=== PATIENT | male | born 2000 | race African-American/Black ===

== ENCOUNTER 2019-10-22 08:09 | Emergency (ER) | payer SELFPAY ==
[2019-10-22] MEDS ORDERED: Ketorolac INJ* 30 MG/ML 1 ML VIAL IM ONE (09:08)
[2019-10-22] MEDS ORDERED: Ondansetron INJ* 2 MG/ML VIAL IV ONE (09:08)
[2019-10-22] MEDS ORDERED: NS 0.9% 1000 ML** 1,000 ML IV ONE (09:08)
--- NOTE | 2019-10-22 09:15 | ED ---
Abdominal Pain/Male - HPI Summary HPI Summary: The patient is a 19-year-old male presenting [place] [facility] with a chief complaint of sudden onset right flank pain that radiates into the right side of the back onset early this morning. He reports that he got up to have a bowel movement when the pain suddenly began. He endorses nausea, vomiting, and diarrhea. He describes the pain as sharp rated 8/10 in severity. There are no aggravating or alleviating factors. He has not taken any medications prior to arrival. No PMHx. Nonsmoker, no EtOH, marijuana use. Medications reviewed. Allergies noted. - History of Current Complaint Chief Complaint: EDAbdPain Stated Complaint: FLANK PAIN Time Seen by Provider: 10/22/19 09:00 Hx Obtained From: Patient Onset/Duration: Sudden Onset, Lasting Hours, Still Present Timing: Constant, Lasting Hours Severity Initially: Severe Severity Currently: Severe Pain Intensity: 8 Pain Scale Used: 0-10 Numeric Location: Flank - right Radiates: Yes Radiates to: Back - right Character: Sharp Aggravating Factor(s): Nothing Alleviating Factor(s): Nothing Associated Signs And Symptoms: Positive: Back Pain, Nausea, Vomiting, Diarrhea - Allergies/Home Medications Allergies/Adverse Reactions: Allergies Allergy/AdvReac Type Severity Reaction Status Date / Time No Known Allergies Allergy Verified 10/22/19 08:16 PMH/Surg Hx/FS Hx/Imm Hx Endocrine/Hematology History: Denies: Hx Diabetes Cardiovascular History: Denies: Hx Hypercholesterolemia, Hx Hypertension Respiratory History: Denies: Hx Asthma - Surgical History Surgical History: None Surgery Procedure, Year, and Place: none Infectious Disease History: No Infectious Disease History: Denies: Traveled Outside the [place] in Last 30 Days - Family History Known Family History: Negative: Diabetes - Social History Alcohol Use: None Hx Substance Use: Yes Substance Use Type: Reports: Marijuana Hx Tobacco Use: No Smoking Status (MU): Never Smoked Tobacco Review of Systems Positive: Vomiting, Diarrhea, Nausea Positive: flank pain - right Positive: Other - right back pain radiating from flank All Other Systems Reviewed And Are Negative: Yes Physical Exam - Summary Physical Exam Summary: VITAL SIGNS: Reviewed. GENERAL: Patient is a well-developed and nourished male who is lying comfortable in the stretcher. Patient is not in any acute respiratory distress. HEAD AND FACE: Normocephalic and atraumatic. EYES: PERRLA, EOMI x 2, No injected conjunctiva. EARS: Hearing grossly intact. Ear canals and tympanic membranes are WNL. MOUTH: Oropharynx within normal limits. NECK: Supple, trachea is midline, no adenopathy, no JVD. CHEST: Symmetric, no tenderness at palpation. LUNGS: Clear to auscultation bilaterally. No wheezing or crackles. CVS: RRR, S1 and S2 present, no murmurs or gallops appreciated. ABDOMEN: Soft, right flank tenderness. No signs of distention. Positive bowel sounds. No rebound, no guarding, and no masses palpated. No abdominal bruit or pulsations. EXTREMITIES: FROM in all major joints, no edema, no cyanosis or clubbing. NEURO: Alert and oriented x 3. No acute neurological deficits. Speech is normal. SKIN: Dry and warm. Triage Information Reviewed: Yes Vital Signs On Initial Exam: Initial Vitals Temp Pulse Resp BP Pulse Ox 97.4 F 90 14 152/110 100 10/22/19 08:10 10/22/19 08:10 10/22/19 08:10 10/22/19 08:10 10/22/19 08:10 Vital Signs Reviewed: Yes Procedures - Sedation Patient Received Moderate/Deep Sedation with Procedure: No Diagnostics - Vital Signs Vital Signs Temp Pulse Resp BP Pulse Ox 10/22/19 08:10 97.4 F 90 14 152/110 100 - Laboratory Result Diagrams: 10/22/19 09:25 10/22/19 09:25 Lab Statement: Any lab studies that have been ordered have been reviewed, and results considered in the medical decision making process. - CT Abdomen/Pelvis CT CT Interpretation Completed By: Radiologist Summary of CT Findings: Impression: Right nephrolithiasis including a 0.2 cm calculus of the right UVJ with mild right hydronephrosis. ED physician has reviewed this report. Abdominal Pain Male Course/Dx - Course Assessment/Plan: The patient is a 19-year-old male presenting [place] [facility] with a chief complaint of sudden onset right flank pain that radiates into the right side of the back onset early this morning. He reports that he got up to have a bowel movement when the pain suddenly began. He endorses nausea, vomiting, and diarrhea. He describes the pain as sharp rated 8/ 10 in severity. There are no aggravating or alleviating factors. He has not taken any medications prior to arrival. No PMHx. Nonsmoker, no EtOH, marijuana use. Medications reviewed. Allergies noted. In the ED course the patient was placed in a laboratory monitor, IV access was obtained, IV fluids were started, and he was given Toradol for the pain. Blood work without a significant abnormality except the WBCs of 14.8, hemoglobin of 13.7, hematocrit of 41, and glucose of 165. Abdominal and Pelvis CT Impression: Right nephrolithiasis including a 0.2 cm calculus of the right UVJ with mild right hydronephrosis. UA is negative. After medications, the patient is feeling better. He has no other complaints. I discussed all the findings and test results with the patient. Patient was instructed to return to the emergency room immediately if any of the symptoms return or worsen. Plan of care was discussed with the patient and understands and agrees. All questions were answered at patient satisfaction. There were no further complaints or concerns. Lung exam before discharge: CTA B/ L. Good air exchange. No wheezing or crackles heard. CVS: S1 and S2 present. No murmurs appreciated. Patient is alert and oriented x 3. Patient is hemodynamically stable. Patient will be discharged home with follow up PCP in the next 2-3 days. - Diagnoses Differential Diagnosis/HQI/PQRI: Appendicitis, Bowel Obstruction, Constipation, Renal Colic, Urinary Tract Infection Provider Diagnoses: Renal colic Discharge ED - Sign-Out/Discharge Documenting (check all that apply): Patient Departure - Patient will be discharged home. - Discharge Plan Condition: Stable Disposition: HOME Prescriptions: Hydrocodone/Acetaminophen [Rosalia 5-325 Tablet] 1 each PO Q6H PRN #10 tablet MDD 4 PRN Reason: Pain - Moderate Ibuprofen TAB* [Motrin TAB* 600 MG] 600 mg PO Q8H PRN #30 tab PRN Reason: Pain - Moderate Patient Education Materials: Renal Colic (ED) Referrals: Jones Randall MD [Primary Care Provider] - 3 Days Additional Instructions: Follow up with your primary care provider in 2-3 days. Return to the emergency department for any new or worsening symptoms. - Billing Disposition and Condition Condition: STABLE Disposition: Home - Attestation Statements Document Initiated by Scribe: Yes Documenting Scribe: Anna Armenta Provider For Whom Flavio is Documenting (Include Credential): Dr. Chilo Mills MD Scribe Attestation: I, Anna Armenta, scribed for Dr. Chilo Mills MD on 10/22/19 at 1848. Scribe Documentation Reviewed: Yes Provider Attestation: The documentation as recorded by the scribe, Anna Armenta accurately reflects the service I personally performed and the decisions made by me, Dr. Chilo Mills MD Status of Scribe Document: Viewed
[2019-10-22 09:33] LABS: ABS Eosinophils 0.1 10^3/ul (0-0.6); ABS Lymphocytes 2.6 10^3/ul (1.0-4.8); ABS Monocytes 0.7 10^3/ul (0-0.8); ABS Neutrophils 11.3 10^3/ul (1.5-7.7); Eosinophil % 0.4 %; Hematocrit 41 % (42-52); Hemoglobin 13.7 g/dL (14.0-18.0); Lymphocyte % 17.8 %; Mean Corpuscular HGB Conc 34 g/dL (31-36); Mean Corpuscular Hemoglobin 29 pg (27-31); Mean Corpuscular Volume 86 fL (80-94); Mean Platelet Volume 8.1 fL (7.4-10.4); Nucleated Red Blood Cells % 0.1; Platelet Count 193 10^3/uL (150-450); Red Blood Count 4.75 10^6 /uL (4.18-5.48); Red Cell Distribution Width 12 % (10-15); White Blood Count 14.8 10^3/uL (3.5-10.8)
[2019-10-22 09:53] LABS: ALT 15 U/L (7-52); AST 20 U/L (13-39); Albumin 4.6 g/dL (3.2-5.2); Albumin/Globulin Ratio 1.9 (1-3); Alkaline Phosphatase 62 U/L (34-104); Anion Gap 9 mmol/L (2-11); BUN/Creatinine Ratio 14.3 (8-20); Blood Urea Nitrogen 14 mg/dL (6-24); C Reactive Protein < 1.00 mg/L (<8.01); CO2 Carbon Dioxide 27 mmol/L (22-32); Calcium 9.7 mg/dL (8.6-10.3); Chloride 106 mmol/L (101-111); EGFR African American 116.8 (>60); EGFR Non-African American 96.6 (>60); Globulin 2.4 g/dL (2-4); Glucose 165 mg/dL (70-100); Potassium 4.5 mmol/L (3.5-5.0); Sodium 142 mmol/L (135-145)
[2019-10-22] MEDS ORDERED: Morphine 4 MG/ML VIAL (1 ml) 4 MG/ML VIAL IV ONE (10:16)
[2019-10-22] MEDS ORDERED: Acetaminophen TAB* 325 MG PO ONE (11:18)
[2019-10-22 11:41] VITALS: BP 102/85
[2019-10-22 12:31] LABS: Urine Appearance Clear; Urine Bilirubin Negative (Negative); Urine Blood 3+ (Negative); Urine Color Yellow; Urine Glucose Negative (Negative); Urine Ketones Negative (Negative); Urine Nitrite Negative (Negative); Urine Protein 1+(30 mg/dL) (Negative); Urine Specific Gravity 1.026 (1.010-1.030); Urine Urobilinogen Negative (Negative)
[2019-10-22 12:47] LABS: Urine Bacteria Absent (Absent); Urine Red Blood Cell 3+(>10/hpf) (Absent); Urine White Blood Cell Absent (Absent)
== END 2019-10-22 12:59 | disposition home or self-care (01) ==
LOC: ED 08:09
DX: N13.2 Hydronephrosis with renal and ureteral calculous obstruction (principal)
CPT/HCPCS: 36415; 74176; 80053; 81003; 81015; 83690; 85025; 86140; 96361; 96372; 96374; 99283; J1885; J2270; J2405